=== PATIENT | female | born 1975 | race Caucasian/White ===

== ENCOUNTER → 2019-09-13 | Outpatient (CLI) | payer BC ==
--- NOTE | 2019-09-13 12:54 | MR ---
EXAMINATION TYPE: MR knee LT wo con DATE OF EXAM: 09/13/2019 12:43 PM COMPARISON: NONE HISTORY: Left knee pain, [employer]. Possibly injured while jumping rope. Hx of surg in 2001. TECHNIQUE: Multiplanar, multisequence imaging of the left knee is performed. FINDINGS: MEDIAL MENISCUS: Anterior and posterior horns are intact without tear. LATERAL MENISCUS: Tear versus postsurgical change anterior horn lateral meniscus. Posterior horn is i ntact. CRUCIATE LIGAMENTS: Increased signal within the ACL may reflect strain without tear. PCL is intact. COLLATERAL LIGAMENTS: The medial collateral ligament and lateral collateral ligament complex are intact and unremarkable. EXTENSOR MECHANISM: Visualized quadriceps and patellar tendons are intact. EFFUSION: No evidence for joint effusion. POPLITEAL CYST: Carrington's cyst measures 3.9 cm in length by 8.4 mm. TRICOMPARTMENT SPACES: The tricompartment joint spaces appear within normal limits. CARTILAGE: The articular cartilage is maintained without abnormal signal or full-thickness defect. BONE MARROW SIGNAL: No focal abnormal marrow signal is appreciated: OTHER: No additional significant abnormality is appreciated. IMPRESSION: 1. Increased signal within the ACL may reflect strain without tear. 2.Tear versus postsurgical change anterior horn lateral meniscus. 3. Carrington's cyst.
== END | disposition home or self-care (01) ==
LOC: RADMRIMAIN 11:38
PROVIDERS: ATTEND Anesthesiology
DX: M71.22 Synovial cyst of popliteal space [Baker], left knee (principal)